=== PATIENT | female | born 1975 | race American Indian/Alaskan Native ===

== ENCOUNTER 2017-05-29 07:18 | Day surgery (SDC) | payer OTHER ==
[2017-05-26 09:39] VITALS: BMI 42.3
[2017-05-29] MEDS ORDERED: Lidocaine Hydrochloride 5 ML INJ ONE (08:56)
[2017-05-29] MEDS ORDERED: Propofol 10 mg/ml Inj (20 ML) ONE (08:56)
[2017-05-29] MEDS ORDERED: Midazolam 2 MG/2 ML VIAL ONE (08:56)
[2017-05-29] MEDS ORDERED: HYDROmorphone 0.5 mg/0.5 ml ISec IVP PRN (09:13)
--- NOTE | 2017-05-29 09:43 | PCM.SURG1 ---
Surgeon's Initial Post Op Note - Surgeon's Notes Surgeon: Magnolia Guzman MD Client Service Associate: none Type of Anesthesia: General LMA Pre-Operative Diagnosis: Abnormal uterine bleeding Operative Findings: posterior cervix, uteurs 8-10 weeks, bilateral ostia visulzie, submucosal myoma <1cm anterior into cavity.urine output 20cc clear yellow urine Post-Operative Diagnosis: same as above, submucosal myoma Operation Performed: Hysteroscopic myomectomy, fractional dilation and currettage Specimen/Specimens Removed: submucosal myoma, endocervical currettings, endometrial currettings Estimated Blood Loss: EBL {In ML}: 5 Blood Products Given: N/A Drains Used: No Drains Date of Surgery/Procedure: 05/29/17 Time of Surgery/Procedure: 09:30
[2017-05-29] MEDS ORDERED: Lactated Ringer's 500 ML IV ONE (11:10)
[2017-05-29 11:28] VITALS: BP 99/60; PULSE 60; RESP 18; TEMP 97; O2SAT 100
--- NOTE | 2017-05-29 18:09 | OP ---
PROCEDURE DATE: 05/29/2017 SURGEON: Magnolia Guzman MD. RETAIL VISUAL MERCHANDISER: None. TYPE OF ANESTHESIA: General LMA. PREOPERATIVE DIAGNOSIS: Abnormal uterine bleeding. POSTOPERATIVE DIAGNOSES: Abnormal uterine bleeding and submucosal myoma. OPERATIVE FINDINGS: Anterior cervix, uterus 8-10 weeks, bilateral ostia visualized, submucosal myoma less than 1 cm in anterior uterine wall and protruding into the cavity. URINE OUTPUT: 20 mL of clear yellow urine obtained. OPERATION PERFORMED: Hysteroscopic myomectomy, fractional dilation and curettage. SPECIMEN REMOVED: Submucosal myoma, endocervical curettings, and endometrial curettings. ESTIMATED BLOOD LOSS: 5 mL. BLOOD PRODUCTS: None. COMPLICATIONS: None. DESCRIPTION OF PROCEDURE: The patient was taken to the operating room, where she was given general anesthesia. Once found to be adequate, she was placed on the operating table in dorsal supine position with legs supported using stirrups. The patient was then prepped and draped in the usual sterile fashion. A time-out was confirmed correct patient and correct procedure. Bimanual exam was performed with the above-mentioned findings. A red rubber catheter was then inserted into the urethra to drain the bladder. Following this, a Nick retractor was placed in the anterior and posterior fornix of the vagina. The cervix was adequately visualized and a single-tooth tenaculum was placed in the anterior lip of the cervix. Endocervical curettings were obtained with a Nav curette, which helped with dilation and sent to pathology on Tel. Uterus was then sounded to 7 cm. Following this, the cervix was sequentially dilated with Cristofer dilator to allow for introduction of the 5 mm hysteroscope under direct visualization using normal saline as the distention media. Upon visualization, there was bilateral ostia visualized and there was a submucosal myoma type protruding anteriorly into the cavity. Following this, MyoSure device was then inserted under direct visualization and the mass was then resected. MyoSure device was then removed. A gentle curettage was done 360 degrees. Following this, the single-tooth tenaculum was removed. There was good hemostasis noted at the tenaculum puncture site. There was good hemostasis noted over all. All instruments were removed. At the end of the procedure, all needle, sponge, and instrument counts were noted and correct x2. The patient tolerated the procedure well and was transferred to the recovery room in stable Magnolia Guzman MD [id number]
== END 2017-05-29 12:12 | disposition home or self-care (01) ==
LOC: C.SDS 07:18
PROVIDERS: ATTEND Obstetrics & Gynecology
DX: N93.9 Abnormal uterine and vaginal bleeding, unspecified (principal); D25.0 Submucous leiomyoma of uterus
CPT/HCPCS: 58561; 88305; J2250; J2704; J3010; J7120